=== PATIENT | female | born 1955 | race Hispanic/Latino ===

== ENCOUNTER → 2025-08-08 | Outpatient (CLI) | payer OTHER ==
--- NOTE | 2025-08-09 11:00 | HMCIMG ---
EXAM: CT Cardiac calcium scoring. CLINICAL HISTORY: CAD screening. TECHNIQUE: Thin collimated axial CT cardiac images were obtained. A CT scan is done according to ALARA (As Low As Reasonably Achievable). CONTRAST: None. COMPARISON: None provided. FINDINGS: Calcium Score: VESSEL Number of lesions Volume mm3 Equi. Mass/mg Calcium score LM 2 14.4 --.-- 18.8 LAD 2 19.4 --.-- 29.6 LCX 2 21.6 --.-- 28.3 RCA 0 00.00 --.-- 00.00 Total 6 55.4 --.-- 76.7 IMPRESSION: The calcium score is 76.7. This places the patient above 50th percentile in comparison to a group of patients asymptomatic for coronary artery disease with the same age and gender. This means that >50% of females aged 70-74 have a calcium score that is lower than the patient's. /[place]
== END | disposition home or self-care (01) ==
LOC: RAH 14:55
PROVIDERS: ATTEND Internal Medicine Cardiovascular Disease
DX: Z13.6 Encounter for screening for cardiovascular disorders (principal); I25.10 Atherosclerotic heart disease of native coronary artery without angina pectoris
CPT/HCPCS: 75571